=== PATIENT | male | born 1980 | race American Indian/Alaskan Native ===

== ENCOUNTER 2018-10-06 16:24 | Emergency (ER) | payer OTHER ==
--- NOTE | 2018-10-06 16:44 | Emergency Department Report ---
Blank Doc - Documentation Documentation: c/o being bite by something since 7 am. This initial assessment diagnostic orders/clinical plan/treatment (s) is/Are subject change based on patient's health status, clinical progression and re- assessment by fellow clinical providers in the ED. Further treatment and work-up at subsequent clinical providers discretion. Patient/guardians urged not to elope from their condition may be serious if not clinically assessed and managed. Initial order include:
--- NOTE | 2018-10-06 18:02 | Emergency Department Report ---
HPI - General Chief Complaint: Animal Bite Time Seen by Provider: 10/06/18 17:55 - HPI HPI: 38-year-old male presents to the emergency department with a questionable insect or animal bite/sting to the right ring finger. He noticed it starting around 7 AM this morning. He says it is painful and is a burning sensation going down the finger. There are 2 very small pustules in the area of this bite/sting. He is able to move the finger and hand. He does feel that there is some swelling to the area. He has not taken anything for her symptoms prior to presentation. He is right-hand dominant. ED Past Medical Hx - Past Medical History Previous Medical History?: No - Surgical History Past Surgical History?: No - Social History Smoking Status: Current Every Day Smoker Substance Use Type: Alcohol - Medications Home Medications: Home Medications Medication Instructions Recorded Confirmed Last Taken Type Ibuprofen [Motrin 800 MG tab] 800 mg PO Q8HR PRN #20 tablet 03/27/15 Unknown Rx RX: Sulfamethoxazole/Trimethoprim 1 each PO BID #14 tablet 10/06/18 Unknown Rx [Bactrim DS TAB] ED Review of Systems ROS: Stated complaint: RT HAND BITE Other details as noted in HPI Comment: All other systems reviewed and negative Constitutional: denies: chills, fever Musculoskeletal: joint swelling, arthralgia Skin: lesions. denies: pruritus Neurological: denies: headache, weakness Physical Exam - Physical Exam Vital Signs: Vital Signs 10/06/18 16:44 Temperature 98 F Pulse Rate 86 Respiratory 18 Rate Blood Pressure 123/93 O2 Sat by Pulse 96 Oximetry Physical Exam: GENERAL: The patient is well-developed well-nourished. HEENT: Normocephalic. Atraumatic. Patient has moist mucous membranes. EYES: Extraocular motions are intact. NECK: Supple. Trachea is midline. CHEST/LUNGS: Clear to auscultation. There is no respiratory distress noted. HEART/CARDIOVASCULAR: Regular. There is no tachycardia. There is no obvious murmur. ABDOMEN: There is no abdominal distention. SKIN: Mild nonpitting swelling to the proximal right ring finger. There are 2 very small pustules on the side of this area of the finger. There is some mild surrounding erythema. NEURO: The patient is awake, alert, and oriented. The patient is cooperative. The patient has normal speech. MUSCULOSKELETAL: Mild tenderness to palpation to the proximal right ring finger. There is no limitation range of motion. Radial pulse +2 and capillary refill less than 2 seconds to the affected right ring finger and hand ED Course Vital Signs 10/06/18 16:44 Temperature 98 F Pulse Rate 86 Respiratory 18 Rate Blood Pressure 123/93 O2 Sat by Pulse 96 Oximetry ED Medical Decision Making - Medical Decision Making Patient presents after a questionable insect bite and/or stenting to the proximal right ring finger. There are 2 small pustules seen in this area with a small amount of erythema. There is also a small amount of swelling but the patient has full range of motion of the finger. He can hold it completely in extension and can flex it almost the entire way into a fist. Vital signs stable including being afebrile. Patient will be placed on antibiotics. We discussed monitoring her for further signs of infection. He will return to the ER with any worsening of his symptoms or any acute distress. - Differential Diagnosis insect bite, cellulitis, abscess, dermatitis Critical Care Time: No Critical care attestation.: If time is entered above; I have spent that time in minutes in the direct care of this critically ill patient, excluding procedure time. ED Disposition Clinical Impression: Cellulitis of finger of right hand Insect bite Qualifiers: Encounter type: initial encounter Site of insect bite: finger Finger: ring finger Laterality: right Qualified Code(s): S60.464A - Insect bite (nonvenomous) of right ring finger, initial encounter Disposition: - TO HOME OR SELFCARE Is pt being admited?: No Condition: Stable Instructions: Cellulitis (ED) Additional Instructions: Please follow up with a primary care physician in the next few days. Return to the emergency Department with any worsening of your symptoms including any increased swelling of the finger, worsening surrounding redness, development of fever, or with any acute distress. Prescriptions: RX: Sulfamethoxazole/Trimethoprim [Bactrim DS TAB] 1 each PO BID #14 tablet Referrals: ROMELIA PIPER DO [Staff Physician] - 2-3 Days [facility] [Outside] - 2-3 Days Forms: Work/School Release Form(ED) Time of Disposition: 18:00
[2018-10-06] MEDS: BACTRIM DS PO ONE ×2 (18:21→18:23)
[2018-10-06 18:24] VITALS: BP 132/87
== END 2018-10-06 18:17 | disposition home or self-care (01) ==
LOC: ED 16:24
DX: S60.464A Insect bite (nonvenomous) of right ring finger, initial encounter (principal); L03.011 Cellulitis of right finger; F17.200 Nicotine dependence, unspecified, uncomplicated; W57.XXXA Bitten or stung by nonvenomous insect and other nonvenomous arthropods, initial encounter; Y93.89 Activity, other specified; Y92.89 Other specified places as the place of occurrence of the external cause; Y99.8 Other external cause status
CPT/HCPCS: 99282